=== PATIENT | female | born 2005 ===

== ENCOUNTER 2023-05-25 18:06 | Emergency (ER) | payer OTHER, SELFPAY ==
[2023-05-25 18:14] VITALS: BP 119/66; PULSE 92; RESP 16; TEMP 36.6; O2SAT 100; BMI 34.4
--- NOTE | 2023-05-25 18:17 | ED.GENADULT ---
HPI - General Adult General Chief complaint: Back Pain/Injury Stated complaint: Abdominal pain/cramping traveling to leg Time Seen by Provider: 05/25/23 19:51 Source: patient, family and RN notes reviewed Mode of arrival: ambulatory Limitations: no limitations History of Present Illness HPI narrative: 18 year old female presents for RLQ abdominal pain for the past 2-3 months. She states the pain occurs sporadically and is 10/10 in severity. She reports the pain radiates to her right thigh and back and lasts a few seconds before subsiding. She reports the pain does not occur daily and has not occurred in over 1 week before it occurred today. She states she has a bowel movement 1-2 times per day and denies a change in frequency, consistenty, or hematochezia. She denies nausea or vomiting. She reports she is sexually active with one male partner and has an IUD in place for 1 year. She is not concerned for STIs and denies polydipsia, polyuria, or vaginal discharge. She states she has not seen an OBGYN in a while. She states she does not experience menstrual cycle symptoms due to the IUD. Related Data Allergies Allergy/AdvReac Type Severity Reaction Status Date / Time No Known Allergies Allergy Verified 05/25/23 18:14 Review of Systems Constitutional: Constitutional: Denies chills and Denies fever(s) Cardiovascular: Cardiovascular: Denies chest pain and Denies dyspnea Respiratory: Respiratory: Denies dyspnea Gastrointestinal: Gastrointestinal: Reports abdominal pain, Denies melena, Denies hematochezia, Denies change in bowel habits, Denies constipation, Denies diarrhea, Denies nausea and Denies vomiting Genitourinary: Genitourinary: Denies difficulty voiding, Denies dysuria, Denies sexual dysfunction, Denies urinary urgency, Denies vaginal discharge and Denies vaginal odor Integumentary/Breasts: Skin/Breast: Denies rash PMFSH Social History Social History Advance Directives: No Advance Directives Information Provided: No Physical Exam ED Vital Signs: Vital Signs - 24 hr 05/25/23 18:14 Temperature 97.9 F Pulse Rate 92 Respiratory Rate 16 Blood Pressure 119/66 Pulse Oximetry 100 Oxygen Delivery Method Room Air BMI result Body Mass Index 34.4 Const General: healthy appearing, comfortable and no acute distress Orientation/consciousness: patient oriented x3 Limitations: no limitations HENMT Head: Yes normocephalic and Yes atraumatic Eyes Conjunctivae: conjunctivae normal Sclerae: sclerae normal Corneas: corneas normal Resp Effort & Inspection: normal respiratory effort Auscultation: clear to auscultation bilaterally Cardio Rate: regular rate Rhythm: regular rhythm GI Inspection: Yes normal to inspection and No distended Palpation (GI): Soft to palpation, not firm, nontender, no guarding and not rigid General: Yes no CVA tenderness Back/Spine/Pelvis Back: no CVA tenderness Skin General skin exam: no rashes or lesions noted Neuro General: patient oriented x3 Course Course Course Narrative: RME; 18 yold female presents to the ED for right flank/back and right lower quadrant pain for one month. labs ordered Medical Decision Making Medical Decision Making [facility] Narrative: Patient presenting for evaluation of right lower abdominal pain that has been on and off for 1 month. Given that her pain is been present for 1 month this is likely rules out acute appendicitis. Patient's labs are without any significant abnormalities, she has no white count no electrolyte abnormalities. Her urine is clear, no evidence of UTI or blood to suggest obstructive uropathy. I discussed possible ultrasound of the pelvis with the patient to evaluate for an ovarian cyst and she declines at this time. I have a very low suspicion for ovarian torsion so I feel it is appropriate for her to decline it exam at this time. Differential Diagnosis Differential Diagnoses: The differential diagnosis associated with the presentation includes IBS ovarian cyst appendicitis UTI chlamydia/ghonorrhea IUD misplacement Lab Data [facility] Lab Attestation statement: I reviewed the patient's lab results. No leukocytosis, no significant anemia. Patient's platelet count is just above normal at 410 K. No electrolyte abnormalities. UA with no evidence of blood or infection 05/25/23 18:29 05/25/23 18:29 Labs: Lab Results 05/25/23 Range/Units 18:29 WBC 10.4 (4.8-10.8) X10*3/uL RBC 4.44 (4.20-5.50) X10*6/uL Hgb 12.6 (12.0-16.0) g/dl Hct 38.7 (37.0-47.0) % MCV 87.2 (80.0-98.0) fL MCH 28.4 (27.0-33.0) pg MCHC 32.6 (31.0-35.0) g/dl RDW 11.7 (11.0-16.0) % Plt Count 410 H (160-400) X10*3/uL MPV 9.5 (9.4-12.3) fL Immature Gran % (Auto) 0.3 (0.0-0.4) % Neut % (Auto) 60.7 (45-73) % Lymph % (Auto) 32.3 (20-40) % [place] % (Auto) 5.8 (2-11) % Eos % (Auto) 0.7 (0-4) % Baso % (Auto) 0.2 (0-2) % Lymph # (Auto) 3.4 (1.2-4.9) X10*3/uL [place] # (Auto) 0.6 (0.1-1.2) X10*3/uL Eos # (Auto) 0.1 (0.0-0.4) X10*3/uL Baso # (Auto) 0.0 (0.0-0.2) X10*3/uL Abs Immat Gran (auto) 0.03 (0.00-0.03) X10*3/uL Absolute Neuts (auto) 6.3 (2.0-8.3) x10*3/uL Absolute Nucleated RBC 0.000 (0.0-0.012) X10*3/uL Nucleated RBC % (auto) 0.0 (0.0-0.2) /100WBC PT 12.3 (11.1-13.3) SEC INR 1.0 (0.9-1.1) APTT 31.9 (26.0-36.4) SEC Sodium 141 (135-145) mmol/L Potassium 3.6 (3.3-5.1) mmol/L Chloride 104 (96-108) mmol/L Carbon Dioxide 26 (22-29) mmol/L Anion Gap 15 (12-20) BUN 12 (9-16) mg/dL Creatinine 0.85 (0.5-1.4) mg/dL Estim Creat Clear Calc 107.0 Estimated GFR > 60 Random Glucose 94 (60-115) mg/dL Calcium 9.6 (8.4-10.2) mg/dL Total Bilirubin 0.2 (0.0-1.0) mg/dL AST 20 (5-31) U/L ALT 18 (0-31) U/L Alkaline Phosphatase 92 (39-117) U/L Total Protein 8.0 (6.5-8.0) g/dL Albumin 4.5 (3.5-5.0) g/dL Beta HCG, Quant < 2 mIU/mL Urine Color Yellow Urine Appearance Cloudy Urine pH 8.5 (5.0-9.0) Ur Specific [place] 1.020 (1.005-1.025) Urine Protein Negative (Neg-Trace) mg/dL Urine Glucose (UA) Negative (Negative) mg/dL Urine Ketones Negative (Negative) mg/dL Urine Blood Negative (Negative) Urine Nitrite Negative (Negative) Ur Leukocyte Esterase Negative (Negative) Urine Test NEGATIVE (NEGATIVE) Discharge Plan Discharge Clinical Impression: Abdominal pain, right lower quadrant Patient Disposition: Home, Self-Care Instructions: Abdominal Pain (ED) Additional Instructions: Your workup in the emergency department today was reassuring. This includes your lab work and urine sample. I suspect that your pain is likely related to an ovarian cyst You may benefit from an outpatient pelvic ultrasound to confirm this or rule this out as you decided not to have this exam performed today Follow-up with your primary doctor Return sooner for any new or worsening symptoms Interventions: ED Discharge Assessment Last Done: 05/25/23 20:32 Discharge Date/Time: 05/25/23 20:33
[2023-05-25 18:35] LABS: MANUAL DIFF FLAG NO
[2023-05-25 18:37] LABS: Basophils Percent Auto 0.2 % (0-2); Eosinophils Absolute Auto 0.1 X10*3/uL (0.0-0.4); Eosinophils Percent Auto 0.7 % (0-4); Hematocrit 38.7 % (37.0-47.0); Hemoglobin 12.6 g/dl (12.0-16.0); Imm Gran Abs Auto 0.03 X10*3/uL (0.00-0.03); Imm Gran Pct Auto 0.3 % (0.0-0.4); Lymphocytes Absolute Auto 3.4 X10*3/uL (1.2-4.9); Lymphocytes Percent Auto 32.3 % (20-40); Mean Corpuscular HGB Conc 32.6 g/dl (31.0-35.0); Mean Corpuscular Hemoglobin 28.4 pg (27.0-33.0); Mean Corpuscular Volume 87.2 fL (80.0-98.0); Mean Platelet Volume 9.5 fL (9.4-12.3); Monocytes Absolute Auto 0.6 X10*3/uL (0.1-1.2); Monocytes Percent Auto 5.8 % (2-11); Neutrophils Absolute Auto 6.3 x10*3/uL (2.0-8.3); Neutrophils Percent Auto 60.7 % (45-73); Platelet Count 410 X10*3/uL (160-400); Red Blood Count 4.44 X10*6/uL (4.20-5.50); Red Cell Distribution Width 11.7 % (11.0-16.0); White Blood Count 10.4 X10*3/uL (4.8-10.8)
[2023-05-25 18:47] LABS: Appearance Urine Cloudy; Color Urine Yellow; Glucose Urine UA Negative (Negative); Leukocyte Esterase Urine Negative (Negative); Nitrite Urine Negative (Negative); PH 8.5 (5.0-9.0); Urine Blood Negative (Negative); Urine Ketones Negative (Negative); Urine Protein Negative (Neg-Trace)
[2023-05-25 18:49] LABS: Prothrombin Time 12.3 SEC (11.1-13.3); UPreg QC Valid YES; Urine Pregnancy NEGATIVE (NEGATIVE)
[2023-05-25 18:51] LABS: Partial Thromboplastin Time 31.9 SEC (26.0-36.4)
[2023-05-25 19:07] LABS: Alanine Aminotransferase 18 U/L (0-31); Albumin Level 4.5 g/dL (3.5-5.0); Alkaline Phosphatase 92 U/L (39-117); Anion Gap 15 (12-20); Aspartate Amino Transferase 20 U/L (5-31); Bilirubin Total 0.2 mg/dL (0.0-1.0); Blood Urea Nitrogen 12 mg/dL (9-16); Calcium 9.6 mg/dL (8.4-10.2); Carbon Dioxide 26 mmol/L (22-29); Chloride 104 mmol/L (96-108); Estimated Glomerular Filt Rate > 60; Glucose Random 94 mg/dL (60-115); Potassium 3.6 mmol/L (3.3-5.1); Sodium 141 mmol/L (135-145)
[2023-05-25 19:09] LABS: HCG Quantitative < 2 mIU/mL
--- NOTE | 2023-05-25 19:59 | ED.GENADULT ---
HPI - General Adult General Chief complaint: Back Pain/Injury Stated complaint: Abdominal pain/cramping traveling to leg Time Seen by Provider: 05/25/23 19:51 Source: patient, family, RN notes reviewed and old records reviewed Mode of arrival: ambulatory Limitations: no limitations History of Present Illness HPI narrative: 18 year old female presents for sharp RLQ pain on and off for the past 2-3 months. She states the pain will randomly occur and is 10/10 in severity and will radiate down her thigh and back. She states it occurred today but has not happened in a week. She denies nausea or vomiting. She states she has a bowel movement 1-2 times per day and denies a change in frequency, consistency, or hematochezia. She admits to being sexually active with one male partner for 7 months and is not concerned for STIs. She denies polyuria, dysuria, vaginal discharge. She has an IUD placed for the past year and reports she does not experience menstrual cycle symptoms. She has not seen an OBGYN in some time. Related Data Allergies Allergy/AdvReac Type Severity Reaction Status Date / Time No Known Allergies Allergy Verified 05/25/23 18:14 Review of Systems Constitutional: Constitutional: Denies chills, Denies fever(s), Denies headache(s) and Denies poor appetite ENT: Denies headache(s) Cardiovascular: Cardiovascular: Denies chest pain, Denies syncope and Denies dyspnea Respiratory: Respiratory: Denies dyspnea Gastrointestinal: Gastrointestinal: Denies melena, Denies hematochezia, Denies constipation, Denies diarrhea, Denies nausea, Denies vomiting and Denies hematemesis Genitourinary: Genitourinary: Denies difficulty voiding, Denies dysuria, Denies pelvic pain, Denies urinary urgency and Denies vaginal discharge Integumentary/Breasts: Skin/Breast: Denies rash Neurologic: Denies syncope and Denies headache(s) [facility] Social History Advance Directives: No Advance Directives Information Provided: No Physical Exam ED Vital Signs: Vital Signs - 24 hr 05/25/23 18:14 Temperature 97.9 F Pulse Rate 92 Respiratory Rate 16 Blood Pressure 119/66 Pulse Oximetry 100 Oxygen Delivery Method Room Air BMI result Body Mass Index 34.4 Const General: healthy appearing, comfortable and no acute distress Orientation/consciousness: patient oriented x3 Limitations: no limitations HENAR Head: Yes normocephalic and Yes atraumatic Eyes Conjunctivae: conjunctivae normal Sclerae: sclerae normal Corneas: corneas normal Resp Effort & Inspection: normal respiratory effort GI Inspection: Yes normal to inspection and No distended Palpation (GI): Soft to palpation, not firm, nontender, no guarding and not rigid General: Yes no CVA tenderness Back/Spine/Pelvis Back: no CVA tenderness Skin General skin exam: no rashes or lesions noted Neuro General: patient oriented x3 Medical Decision Making Medical Decision Making [facility] Narrative: Patient is seen and evaluated, on exam she is nontender in the right lower quadrant. Her workup is largely unremarkable, discussed the central pelvic exam with the patient which she defers this time. Given that she is currently asymptomatic, labs are within normal limits, vital signs are stable I do not see any indication for emergent imaging. I have a low suspicion for acute appendicitis this is in the differential. Patient was give return precautions. Her pain is most likely related to ovarian cyst which she has a history of. Differential Diagnosis Differential Diagnoses: The differential diagnosis associated with the presentation includes IBS appendicitis STI UTI Lab Data [facility] Lab Attestation statement: I reviewed the patient's lab results. Patient has no significant leukocytosis or anemia. Platelet count is slightly elevated to 410 K. no significant electrolyte abnormalities. 05/25/23 18:29 05/25/23 18:29 Labs: Lab Results 05/25/23 Range/Units 18:29 WBC 10.4 (4.8-10.8) X10*3/uL RBC 4.44 (4.20-5.50) X10*6/uL Hgb 12.6 (12.0-16.0) g/dl Hct 38.7 (37.0-47.0) % MCV 87.2 (80.0-98.0) fL MCH 28.4 (27.0-33.0) pg MCHC 32.6 (31.0-35.0) g/dl RDW 11.7 (11.0-16.0) % Plt Count 410 H (160-400) X10*3/uL MPV 9.5 (9.4-12.3) fL Immature Gran % (Auto) 0.3 (0.0-0.4) % Neut % (Auto) 60.7 (45-73) % Lymph % (Auto) 32.3 (20-40) % [place] % (Auto) 5.8 (2-11) % Eos % (Auto) 0.7 (0-4) % Baso % (Auto) 0.2 (0-2) % Lymph # (Auto) 3.4 (1.2-4.9) X10*3/uL [place] # (Auto) 0.6 (0.1-1.2) X10*3/uL Eos # (Auto) 0.1 (0.0-0.4) X10*3/uL Baso # (Auto) 0.0 (0.0-0.2) X10*3/uL Abs Immat Gran (auto) 0.03 (0.00-0.03) X10*3/uL Absolute Neuts (auto) 6.3 (2.0-8.3) x10*3/uL Absolute Nucleated RBC 0.000 (0.0-0.012) X10*3/uL Nucleated RBC % (auto) 0.0 (0.0-0.2) /100WBC PT 12.3 (11.1-13.3) SEC INR 1.0 (0.9-1.1) APTT 31.9 (26.0-36.4) SEC Sodium 141 (135-145) mmol/L Potassium 3.6 (3.3-5.1) mmol/L Chloride 104 (96-108) mmol/L Carbon Dioxide 26 (22-29) mmol/L Anion Gap 15 (12-20) BUN 12 (9-16) mg/dL Creatinine 0.85 (0.5-1.4) mg/dL Estim Creat Clear Calc 107.0 Estimated GFR > 60 Random Glucose 94 (60-115) mg/dL Calcium 9.6 (8.4-10.2) mg/dL Total Bilirubin 0.2 (0.0-1.0) mg/dL AST 20 (5-31) U/L ALT 18 (0-31) U/L Alkaline Phosphatase 92 (39-117) U/L Total Protein 8.0 (6.5-8.0) g/dL Albumin 4.5 (3.5-5.0) g/dL Beta HCG, Quant < 2 mIU/mL Urine Color Yellow Urine Appearance Cloudy Urine pH 8.5 (5.0-9.0) Ur Specific [place] 1.020 (1.005-1.025) Urine Protein Negative (Neg-Trace) mg/dL Urine Glucose (UA) Negative (Negative) mg/dL Urine Ketones Negative (Negative) mg/dL Urine Blood Negative (Negative) Urine Nitrite Negative (Negative) Ur Leukocyte Esterase Negative (Negative) Urine Test NEGATIVE (NEGATIVE) Discharge Plan Discharge Clinical Impression: Abdominal pain, right lower quadrant Patient Disposition: Home, Self-Care Instructions: Abdominal Pain (ED) Additional Instructions: Your workup in the emergency department today was reassuring. This includes your lab work and urine sample. I suspect that your pain is likely related to an ovarian cyst You may benefit from an outpatient pelvic ultrasound to confirm this or rule this out as you decided not to have this exam performed today Follow-up with your primary doctor Return sooner for any new or worsening symptoms Interventions: ED Discharge Assessment Last Done: 05/25/23 20:32 Discharge Date/Time: 05/25/23 20:33
== END 2023-05-25 20:33 | disposition home or self-care (01) ==
PROVIDERS: Physician Assistant; Emergency Provider Emergency Medicine
DX: R10.31 Right lower quadrant pain (principal)
CPT/HCPCS: 36415; 80053; 81003; 81025; 84702; 85025; 85610; 85730; 99283; 99284

== ENCOUNTER 2023-10-13 13:28 | Emergency (ER) | payer MEDICAID, SELFPAY ==
[2023-10-13 13:37] VITALS: BP 113/75; PULSE 91; RESP 16; TEMP 36.8; O2SAT 98; BMI 34.6
--- NOTE | 2023-10-13 13:37 | ED.GENADULT ---
HPI - General Adult General Chief complaint: Upper Respiratory Symptoms Stated complaint: needs meds for strep Time Seen by Provider: 10/13/23 14:38 Source: patient Mode of arrival: ambulatory Limitations: no limitations History of Present Illness HPI narrative: Patient is a 18-year-old female who presents emergency department for evaluation of sore throat, nasal congestion. Her boyfriend is been ill with similar symptoms for the past 2 days. Related Data Previous Rx's Medication Instructions Recorded amoxicillin 500 mg capsule 500 mg PO BID #20 caps 10/13/23 Allergies Allergy/AdvReac Type Severity Reaction Status Date / Time No Known Allergies Allergy Verified 05/25/23 18:14 Review of Systems Review of Systems: Yes all other systems are reviewed and are negative [facility] Past Medical History Attestation statement: The following information was validated with the patient. Source: old records reviewed Social History Social History Advance Directives: No Advance Directives Information Provided: No Physical Exam ED Vital Signs: Vital Signs - 24 hr 10/13/23 13:37 Temperature 98.3 F Pulse Rate 91 Respiratory Rate 16 Blood Pressure 113/75 Pulse Oximetry 98 Oxygen Delivery Method Room Air BMI result Body Mass Index 34.6 Appearance: Alert.?Oriented to person, place and time. No acute distress.?Normal affect. Eyes: Pupils equal, round and reactive to light.? ENT: Pharynx erythematous with white exudates, 2+ tonsillar hypertrophy bilaterally. Uvula midline. No trismus. No drooling. ? Neck: Normal inspection.? Neck supple.??No cervical adenopathy CVS: Heart sounds normal. Normal heart rate and rhythm.? Pulses normal.?? Respiratory: No respiratory distress.? Lung sounds clear to auscultation bilaterally?? Abdomen: Soft and non-tender. Normoactive bowel sounds. Skin: Skin warm and dry.? Normal skin color.? Extremities: No lower extremity edema.? No calf ttp? Neuro: Moves all extremities spontaneously. Sensation intact bilaterally. Ambulates with normal steady gait. Course Course Course Narrative: This is an RME: Additional HPI, ROS, PE not included below will be deferred to primary provider. Patient is a 18-year-old female who presents emergency department for evaluation of sore throat, bilateral leg pains, nasal congestion. Her boyfriend is been ill with similar symptoms for the past 2 days. Plan: Viral panel, strep a testing Medical Decision Making Medical Decision Making [facility] Narrative: Patient is a 18-year-old female who presents emergency department for evaluation of sore throat with recent sick contact. Exam is consistent with pharyngitis, strep A negative. Not consistent with peritonsillar retropharyngeal abscess. Viral testing is negative. Speaking clear full sentences. No distress. Nontoxic in appearance, afebrile. Tolerating oral intake. Discharged home with prescription for amoxicillin. Discussed return precautions, outpatient follow-up primary care provider. All questions answered. Differential Diagnosis Differential Diagnoses: The differential diagnosis associated with the presentation includes (See narrative above) Lab Data [facility] Lab Attestation statement: I reviewed the patient's lab results. (See narrative above) Labs: Lab Results 10/13/23 Range/Units 14:09 S. pyogenes GrpA EMILY Positive A (Negative) Prescription Management I considered prescription management with: Pain Medication and Antibiotic Discharge Plan Discharge Clinical Impression: Strep pharyngitis Patient Disposition: Home, Self-Care Instructions: Strep Throat (ED) Additional Instructions: Complete the entire course of antibiotics as prescribed. Do not stop taking them early even if you begin to feel better. You can take ibuprofen 200 mg, 3 tablets (600mg) every 6-8 hours as needed for pain, in addition to Tylenol 500 mg, 2 tablets (1,000mg) every 4-6 hours as needed for pain, but not to exceed 3 doses daily (3,000mg).?. Return back to emergency department any new or worsening symptoms or concerns. Follow-up with your primary care provider. Prescriptions: New amoxicillin 500 mg capsule 500 mg PO BID Qty: 20 0RF Referrals: Physician,None [Primary Care Provider] -
[2023-10-13 14:30] LABS: IDNOW Serial# 08D9AD1C; Strep A Nucleic Acid Positive (Negative)
[2023-10-13 14:44] VITALS: BP 127/80; PULSE 78; RESP 16; TEMP 36.6; O2SAT 98
[2023-10-13 14:49] LABS: Influenza A PCR NEGATIVE (Negative); Influenza B PCR NEGATIVE (Negative); Resp Syncy Virus RNA Qual PCR NEGATIVE (Negative); SARS COV2 PCR INHOUSE NEGATIVE (Negative)
== END 2023-10-13 14:45 | disposition home or self-care (01) ==
PROVIDERS: Nurse Practitioner Family; Emergency Provider Student in an Organized Health Care Education/Training Program
DX: J02.0 Streptococcal pharyngitis (principal); R09.81 Nasal congestion; Z03.818 Encounter for observation for suspected exposure to other biological agents ruled out
CPT/HCPCS: 0241U; 87651; 99282; 99283

== ENCOUNTER 2024-06-02 05:51 | Emergency (ER) | payer MEDICAID, SELFPAY ==
--- NOTE | ~2024-06-02 | CT_ITS ---
EXAMINATION: CT ABDOMEN AND PELVIS WITHOUT CONTRAST CLINICAL INFORMATION: Epigastric/periumbilical abdominal pain. COMPARISON: None available. TECHNIQUE: Multidetector volumetric imaging was performed from the superior aspect of the liver through the pubic symphysis. Sagittal and coronal reformatted images were obtained on the technologist's workstation. This CT examination was performed using dose optimization techniques as appropriate, variously including the following: *Automated exposure control *Adjustment of mA and/or kV according to patient size (this includes techniques or standardized protocols for targeted exams where dose is matched to indication/reason for exam; i.e. extremities or head) *Use of iterative reconstruction technique DLP: 631 mGy-cm FINDINGS: LUNG BASES: The visualized lung bases are unremarkable. LIVER, GALLBLADDER, AND BILIARY TREE: The liver is normal in size, shape, and attenuation. No focal hepatic lesion or biliary ductal dilatation is present. The gallbladder is unremarkable with no evidence of radiopaque gallstones, gallbladder wall thickening, or obvious pericholecystic inflammatory changes. PANCREAS: Unremarkable. SPLEEN: Unremarkable. ADRENAL GLANDS: Unremarkable. KIDNEYS AND URETERS: The kidneys are normal in size, shape, and attenuation. No hydronephrosis, hydroureter, or calculi seen. No perinephric stranding. BLADDER: Partially distended and unremarkable. GASTROINTESTINAL TRACT: No bowel wall thickening or inflammatory change. No small or large bowel obstruction. Unremarkable appendix. PERITONEAL CAVITY: No intra-abdominal free air or free fluid. No intra-abdominal mass or organized fluid collection/abscess formation. ABDOMINAL WALL: No significant hernia is appreciated. LYMPH NODES: No lymphadenopathy. VASCULAR: Unremarkable. PELVIC VISCERA: IUD within the uterus. OSSEOUS STRUCTURES: Unremarkable. CT/CT abdomen pelvis wo IV con IMPRESSION: 1. No bowel wall thickening or inflammatory change. No small or large bowel obstruction. Unremarkable appendix. 2. No intra-abdominal mass, lymphadenopathy, or ascites. 3. No hydronephrosis or nephrolithiasis. Fleischner guidelines were followed. Electronically signed by: Avinash Bailey MD 06/02/2024 09:00 AM [facility]
[2024-06-02 05:53] VITALS: BP 145/77; PULSE 101; RESP 28; TEMP 36.5; O2SAT 96; BMI 34.8
[2024-06-02 06:16] LABS: MANUAL DIFF FLAG NO
[2024-06-02 06:17] LABS: Basophils Percent Auto 0.3 % (0-2); Eosinophils Absolute Auto 0.1 X10*3/uL (0.0-0.4); Eosinophils Percent Auto 1.2 % (0-4); Hemoglobin 12.6 g/dl (12.0-16.0); Imm Gran Abs Auto 0.07 X10*3/uL (0.00-0.03); Imm Gran Pct Auto 0.9 % (0.0-0.4); Lymphocytes Absolute Auto 3.6 X10*3/uL (1.2-4.9); Lymphocytes Percent Auto 46.1 % (20-40); Mean Corpuscular HGB Conc 33.2 g/dl (31.0-35.0); Mean Corpuscular Hemoglobin 29.4 pg (27.0-33.0); Mean Corpuscular Volume 88.8 fL (80.0-98.0); Mean Platelet Volume 9.5 fL (9.4-12.3); Monocytes Absolute Auto 0.5 X10*3/uL (0.1-1.2); Monocytes Percent Auto 6.1 % (2-11); Neutrophils Absolute Auto 3.5 x10*3/uL (2.0-8.3); Neutrophils Percent Auto 45.4 % (45-73); Platelet Count 362 X10*3/uL (160-400); Red Blood Count 4.28 X10*6/uL (4.20-5.50); Red Cell Distribution Width 11.9 % (11.0-16.0); White Blood Count 7.7 X10*3/uL (4.8-10.8)
[2024-06-02 06:35] LABS: Alanine Aminotransferase 17 U/L (0-31); Albumin Level 4.2 g/dL (3.5-5.0); Alkaline Phosphatase 85 U/L (39-117); Amylase 44 U/L (28-100); Anion Gap 13 (12-20); Aspartate Amino Transferase 23 U/L (5-31); Bilirubin Direct < 0.2 mg/dL (0.0-0.5); Bilirubin Total 0.2 mg/dL (0.0-1.0); Blood Urea Nitrogen 16 mg/dL (9-16); Calcium 9.2 mg/dL (8.4-10.2); Carbon Dioxide 25 mmol/L (22-29); Chloride 107 mmol/L (96-108); Creatinine Clr Calc Pharmacy 119.4; Estimated Glomerular Filt Rate > 60; Glucose Random 135 mg/dL (60-115); Lipase 26 U/L (8-78); Potassium 3.7 mmol/L (3.3-5.1); Sodium 141 mmol/L (135-145); Total Protein 7.4 g/dL (6.5-8.0)
--- NOTE | 2024-06-02 06:54 | ED_ITS ---
HPI - Abdominal Pain General Chief Complaint: Abdominal Pain Stated Complaint: stomach pain Time Seen by Provider: 06/02/24 06:39 Source: patient Mode of arrival: ambulatory Limitations: no limitations History of Present Illness ED Provider: DULCE LONDON PA-C HPI narrative: 19-year-old female with no significant pmhx presents to the ED today for evaluation sudden-onset abdominal pain since 0500 this morning. Pain is localized to epigastric/periumbilical region. Denies nausea however forced herself to vomit twice. This did not improve her symptoms. Reports history of similar however felt better after vomiting. Last BM this morning and reports it was her baseline. Denies hematemesis, flank pain, vomiting, diarrhea, constipation, dysuria, hematuria. Denies etoh consumptions. Denies recent travel. Denies consuming any unusual foods. Related Data Previous Rx's ?Medication ?Instructions ?Recorded amoxicillin 500 mg capsule 500 mg PO BID #20 caps 10/13/23 Allergies Allergy/AdvReac Type Severity Reaction Status Date / Time No Known Allergies Allergy Verified 06/02/24 05:54 Review of Systems Review of Systems Constitutional: No fever, chills, fatigue, night sweats, weight changes ENT/Mouth: No ear pain, hearing loss, nasal congestion, sinus pain, rhinorrhea, sore throat Eyes: No eye pain, swelling, redness, vision changes, discharge Cardio: No chest pain, palpitations, TAFOYA, orthopnea, peripheral edema Pulm: No SOB, cough, sputum, wheezing, dyspnea, hemoptysis GI: No nausea, vomiting, hematemesis,diarrhea, constipation, hematochezia, melena, +abdominal pain : No irregular bleeding, dysuria, frequency, urgency, hesitancy, hematuria, flank pain, urinary flow changes, urinary incontinence or retention MSK: No back pain, neck pain, joint pain, myalgias Skin: No lesions, rashes Neuro: No weakness, numbness, paresthesias, LOC, dizziness, headache Psych: No anxiety/panic, depression, SI/HI, AH/VH All other systems reviewed and are negative. [facility] Past Medical History Attestation statement: The following information was validated with the patient. Source: old records reviewed and nursing notes reviewed Social History Social History Smoked in Last 30 Days: No Use of substances other than those prescribed or required for medical reasons: No Advance Directives: No Advance Directives Information Provided: No Do you have a plan to hurt others: No Plan Patient : No Physical Exam ED Vital Signs: Vital Signs - 24 hr 06/02/24 05:53 06/02/24 08:54 Temperature 97.7 F 98.6 F Pulse Rate 101 H 74 Respiratory Rate 28 H 14 Blood Pressure 145/77 H 108/51 L Pulse Oximetry 96 100 Oxygen Delivery Method Room Air Room Air BMI result Body Mass Index 34.8 hypertensive, tachycardic, and tachypneic General: Well appearing, in no acute distress. Skin: Warm, dry, intact. No rashes or lesions. Head: Normocephalic, atraumatic. EENT: Hearing is intact b/l. Conjunctiva clear. Sclera is anicteric. PERRLA. EOM intact. Moist mucous membranes.? Neck: Supple without LAD. FROM. Trachea midline.? Cardiac: Chest wall symmetric. RRR Lungs: Normal respiratory effort without accessory muscle use. CTA bilaterally Abdomen: Soft, nondistended, mildly tender to palpation of periumbilical region, no rebound tenderness or guarding. Normoactive bowel sounds x4. No CVAT bilaterally. Back: No midline spinous or paraspinal tenderness. No step off deformity. Ext: Upper and lower extremities atraumatic, without tenderness, deformity, swelling or erythema. Full ROM throughout. Neuro: AOx3. Normal speech. Ambulating with steady gait. Psych: Appropriate mood and affect. Responds appropriately to questions. Course Course Course Narrative: 193 -- cbc without leukocytosis, no left shift. no anemia. h&h stable. no marley. normal liver function. lipase wnl. urine without infection or blood. urine negative. ct abdomen pending. > morphine ordered for pain control 1027 -- CT abdomen/pelvis without evidence of bowel obstruction. No bowel wall thickening. Normal appendix. Normal gallbladder. On re-evaluation, patient reports complete resolution of symptoms. She states that symptoms resolved after she was able to belch a few times. Concerned it may have been gas pain. States she was feeling well and would like to leave which I feel is reasonable as workup is unremarkable. Patient has remained stable throughout ED visit today. Discussed worrisome signs and symptoms and when to return to the ED. All questions answered at this time. Patient is agreeable with disposition and stable for discharge. Medical Decision Making Medical Decision Making [facility] Narrative: 19-year-old female with no significant pmhx presents to the ED today for evaluation sudden-onset abdominal pain since 0500 this morning. Patient initially hypertensive to 145/77, tachycardic to 101, tachypneic to 28. Afebrile. She is nontoxic-appearing and in no acute distress. Lying comfortably on the exam bed. Skin is warm, dry, intact. Moist mucous membranes. Abdomen is soft, nondistended, mildly tender to palpation of periumbilical region without tenderness or guarding. Normoactive bowel sounds x4. No CVAT bilaterally. Differential diagnoses: constipation, gas pain, appendicitis, diverticulitis, diverticulosis, UTI, IUP, pancreatitis, PUD Abdominal exam without peritoneal signs. No evidence of acute abdomen at this time. Well appearing. Low suspicion for acute hepatobiliary disease (including acute cholecystitis), acute infectious processes (pneumonia, hepatitis, pyelonephritis, PID, TOA), vascular catastrophe, bowel obstruction or viscus perforation, ovarian cyst/ rupture/ torsion, ectopic. Presentation not consistent with other acute, emergent causes of abdominal pain at this time. Plan: labs, UA, CT AP, pain control, serial reassessment Differential Diagnosis Differential Diagnoses: The differential diagnosis associated with the presentation includes As above Admission/Observation not indicated Lab Data [facility] Lab Attestation statement: I reviewed the patient's lab results. as above. 06/02/24 06:13 06/02/24 06:13 Labs: Lab Results 06/02/24 06/02/24 Range/Units 06:13 06:56 WBC 7.7 (4.8-10.8) X10*3/uL RBC 4.28 (4.20-5.50) X10*6/uL Hgb 12.6 (12.0-16.0) g/dl Hct 38.0 (37.0-47.0) % MCV 88.8 (80.0-98.0) fL MCH 29.4 (27.0-33.0) pg MCHC 33.2 (31.0-35.0) g/dl RDW 11.9 (11.0-16.0) % Plt Count 362 (160-400) X10*3/uL MPV 9.5 (9.4-12.3) fL Immature Gran % (Auto) 0.9 H (0.0-0.4) % Neut % (Auto) 45.4 (45-73) % Lymph % (Auto) 46.1 H (20-40) % [place] % (Auto) 6.1 (2-11) % Eos % (Auto) 1.2 (0-4) % Baso % (Auto) 0.3 (0-2) % Lymph # (Auto) 3.6 (1.2-4.9) X10*3/uL [place] # (Auto) 0.5 (0.1-1.2) X10*3/uL Eos # (Auto) 0.1 (0.0-0.4) X10*3/uL Baso # (Auto) 0.0 (0.0-0.2) X10*3/uL Abs Immat Gran (auto) 0.07 H (0.00-0.03) X10*3/uL Absolute Neuts (auto) 3.5 (2.0-8.3) x10*3/uL Absolute Nucleated RBC 0.000 (0.0-0.012) X10*3/uL Nucleated RBC % (auto) 0.0 (0.0-0.2) /100WBC Sodium 141 (135-145) mmol/L Potassium 3.7 (3.3-5.1) mmol/L Chloride 107 (96-108) mmol/L Carbon Dioxide 25 (22-29) mmol/L Anion Gap 13 (12-20) BUN 16 (9-16) mg/dL Creatinine 0.73 (0.5-1.4) mg/dL Estim Creat Clear Calc 119.4 Estimated GFR > 60 Random Glucose 135 H (60-115) mg/dL Calcium 9.2 (8.4-10.2) mg/dL Total Bilirubin 0.2 (0.0-1.0) mg/dL Direct Bilirubin < 0.2 (0.0-0.5) mg/dL AST 23 (5-31) U/L ALT 17 (0-31) U/L Alkaline Phosphatase 85 (39-117) U/L Total Protein 7.4 (6.5-8.0) g/dL Albumin 4.2 (3.5-5.0) g/dL Amylase 44 (28-100) U/L Lipase 26 (8-78) U/L Urine Color Yellow Urine Appearance Clear Urine pH 6.5 (5.0-9.0) Ur Specific [place] 1.025 (1.005-1.025) Urine Protein Negative (Neg-Trace) mg/dL Urine Glucose (UA) Negative (Negative) mg/dL Urine Ketones Negative (Negative) mg/dL Urine Blood Negative (Negative) Urine Nitrite Negative (Negative) Ur Leukocyte Esterase Negative (Negative) Urine RBC 0-2 (0-2) /HPF Urine WBC 0-5 (0-5) /HPF Ur Squamous Epith Cells 6-10 (0-2) /HPF Urine Bacteria 2+ (None Seen) Hyaline Casts 0-2 (0-2) /LPF Urine Test NEGATIVE (NEGATIVE) Independent Interpretation I performed an independent interpretation of an: CT Scan Interpretation: ct abd/ pelvis without bowel wall thickening or obstruction Radiology Impression Discussion of test interpretation with radiology: I have reviewed the radiologist's reading. Radiologist Impression: EXAMINATION: CT ABDOMEN AND PELVIS WITHOUT CONTRAST CLINICAL INFORMATION: Epigastric/periumbilical abdominal pain. COMPARISON: None available. TECHNIQUE: Multidetector volumetric imaging was performed from the superior aspect of the liver through the pubic symphysis. Sagittal and coronal reformatted images were obtained on the technologist's workstation. This CT examination was performed using dose optimization techniques as appropriate, variously including the following: *Automated exposure control *Adjustment of mA and/or kV according to patient size (this includes techniques or standardized protocols for targeted exams where dose is matched to indication/reason for exam; i.e. extremities or head) *Use of iterative reconstruction technique DLP: 631 mGy-cm FINDINGS: LUNG BASES: The visualized lung bases are unremarkable. LIVER, GALLBLADDER, AND BILIARY TREE: The liver is normal in size, shape, and attenuation. No focal hepatic lesion or biliary ductal dilatation is present. The gallbladder is unremarkable with no evidence of radiopaque gallstones, gallbladder wall thickening, or obvious pericholecystic inflammatory changes. PANCREAS: Unremarkable. SPLEEN: Unremarkable. ADRENAL GLANDS: Unremarkable. KIDNEYS AND URETERS: The kidneys are normal in size, shape, and attenuation. No hydronephrosis, hydroureter, or calculi seen. No perinephric stranding. BLADDER: Partially distended and unremarkable. GASTROINTESTINAL TRACT: No bowel wall thickening or inflammatory change. No small or large bowel obstruction. Unremarkable appendix. PERITONEAL CAVITY: No intra-abdominal free air or free fluid. No intra-abdominal mass or organized fluid collection/abscess formation. ABDOMINAL WALL: No significant hernia is appreciated. LYMPH NODES: No lymphadenopathy. VASCULAR: Unremarkable. PELVIC VISCERA: IUD within the uterus. OSSEOUS STRUCTURES: Unremarkable. CT/CT abdomen pelvis wo IV con IMPRESSION: 1. No bowel wall thickening or inflammatory change. No small or large bowel obstruction. Unremarkable appendix. 2. No intra-abdominal mass, lymphadenopathy, or ascites. 3. No hydronephrosis or nephrolithiasis. Fleischner guidelines were followed. Electronically signed by: Avinash Bailey MD 06/02/2024 09:00 AM [facility] Workstation: [id number] Independent Historian Clinical information obtained from an independent historian. History obtained from or confirmed by: Parent (dad) External Record Review External record reviewed: Inpatient record Prescription Management I considered prescription management with: Pain Medication (tylenol/ motrin) Social Determinants Patient?s care significantly limited by Social Determinants of Health including: Other Social Determinant of Health Medications Administered Discontinued Medications Generic Name Dose Route Start Last Admin Trade Name Jarrodq PRN Reason Stop Dose Admin Al Hydroxide/Mg Hydroxide 30 ml 06/02/24 09:21 06/02/24 09:30 Magnesium Hydrox/Alum Hydrox 30 Ml Oral.Susp PO 06/02/24 09:22 30 ml ONCE ONE Administration Belladonna Alkaloids/Phenobarbital 10 ml 06/02/24 09:21 06/02/24 09:29 Phenobarb/Hyoscy/Atropine/Scop 10 Ml Elixir PO 06/02/24 09:22 10 ml ONCE ONE Administration Morphine Sulfate 2 mg 06/02/24 07:00 06/02/24 07:07 Morphine Sulfate 2 Mg/Ml Cartridge IVPUSH 06/02/24 07:01 2 mg ONCE ONE Administration Protocol Ondansetron HCl 4 mg 06/02/24 09:21 06/02/24 09:31 Ondansetron Odt 4 Mg Tab.Rapdis TRANSLINGU 06/02/24 09:22 4 mg ONCE ONE Administration Critical Care Time Critical Care Time Critical Care Time: No Discharge Plan Discharge Clinical Impression: Abdominal pain Patient Disposition: Home, Self-Care Instructions: Abdominal Pain (ED) Additional Instructions: Your blood work today is reassuring. Your urine is negative for infection and . The CT scan of your abdomen is normal. There is no evidence of obstruction or infection. You may take tylenol or motrin at home. Please follow up with PCP this week. Return with new or worsening symptoms. In the case of an emergency call 911. Prescriptions: No Action amoxicillin 500 mg capsule 500 mg PO BID Qty: 20 0RF Referrals: [facility] [Provider Group] [facility] [Provider Group] [facility] [Provider Group] Print Language: Malay
[2024-06-02] MEDS: Morphine Sulfate 2 MG/ML CARTRIDGE IVPUSH (07:07)
[2024-06-02 07:15] LABS: UPreg QC Valid YES; Urine Pregnancy NEGATIVE (NEGATIVE)
[2024-06-02 07:23] LABS: Appearance Urine Clear; Color Urine Yellow; Glucose Urine UA Negative (Negative); Leukocyte Esterase Urine Negative (Negative); Nitrite Urine Negative (Negative); PH 6.5 (5.0-9.0); Specific Gravity - Urine 1.025 (1.005-1.025); Urine Blood Negative (Negative); Urine Ketones Negative (Negative); Urine Protein Negative (Neg-Trace)
[2024-06-02 07:28] LABS: Bacteria Urine 2+ (None Seen); Hyaline Casts Urine 0-2 /LPF (0-2); RBC Urine 0-2 /HPF (0-2); WBC Urine 0-5 /HPF (0-5)
[2024-06-02 08:54] VITALS: BP 108/51; PULSE 74; RESP 14; TEMP 37; O2SAT 100
[2024-06-02] MEDS: PHENobarb/Hyoscy/Atropine/Scop 10 ML ELIXIR PO (09:29)
[2024-06-02] MEDS: Magnesium Hydrox/Alum Hydrox 30 ML ORAL.SUSP PO (09:30)
[2024-06-02] MEDS: Ondansetron ODT 4 MG TAB.RAPDIS TRANSLINGU (09:31)
[2024-06-02 10:45] VITALS: BP 118/77; PULSE 79; RESP 16; TEMP 36.8; O2SAT 100
== END 2024-06-02 10:51 | disposition home or self-care (01) ==
PROVIDERS: Emergency Provider Emergency Medicine
DX: R10.2 Pelvic and perineal pain (principal); R10.13 Epigastric pain; Z79.899 Other long term (current) drug therapy
CPT/HCPCS: 36415; 74176; 80053; 81001; 81025; 82150; 82248; 83690; 85025; 96374; 99284; J2270

== ENCOUNTER 2024-06-19 23:06 | Emergency (ER) | payer SELFPAY ==
[2024-06-19 23:39] VITALS: BP 124/53; PULSE 72; RESP 18; TEMP 36.9; BMI 35.9
[2024-06-20 02:49] VITALS: BP 105/55; PULSE 79; RESP 16; TEMP 36.9; O2SAT 99
--- NOTE | 2024-06-20 03:42 | ED_ITS ---
HPI - General Adult General Chief complaint: General Medical Stated complaint: ?[place] eye in both eyes Time Seen by Provider: 06/20/24 03:32 Source: patient Mode of arrival: ambulatory Limitations: no limitations History of Present Illness ED Provider: HPI narrative: Patient with cold symptoms for last 2 3 days today noticed both eyes are red removed her contact lenses and still has a irritation in both eyes now also patient complaining of running nose and sore throat Related Data Previous Rx's ?Medication ?Instructions ?Recorded amoxicillin 500 mg capsule 500 mg PO BID #20 caps 10/13/23 ciprofloxacin HCl 0.3 % eye drops 1 drp ophthalmic (eye) Q4H 5 days 06/20/24 #5 mL Allergies Allergy/AdvReac Type Severity Reaction Status Date / Time No Known Allergies Allergy Verified 06/19/24 23:41 [facility] Social History Social History Advance Directives: No Advance Directives Information Provided: Yes Do you have a plan to hurt others: No Plan Physical Exam ED Vital Signs: Vital Signs - 24 hr 06/19/24 23:39 06/20/24 02:49 06/20/24 04:08 Temperature 98.4 F 98.4 F 98.4 F Pulse Rate 72 79 79 Respiratory Rate 18 16 16 Blood Pressure 124/53 L 105/55 L 105/55 L Pulse Oximetry 99 99 Oxygen Delivery Method Room Air Room Air Room Air BMI result Body Mass Index 35.9 Appearance: Alert. Oriented X3. No acute distress. ENT: Pharynx slight erythematous Oral Mucosa moist eyes: Conjunctiva erythema bilateral with clear discharge anterior chamber and cornea normal Neck: Normal inspection. Neck supple. CVS: Normal heart rate and rhythm. Pulses normal. Respiratory: No respiratory distress. Equal air entry bilateral, no wheezing/rales/rhonchi Skin: Skin warm and dry. Normal skin color. Normal skin turgor. Extremities: No lower extremity edema. Neuro: Oriented X 3. Medications Administered Discontinued Medications Generic Name Dose Route Start Last Admin Trade Name Freq PRN Reason Stop Dose Admin Tobramycin Sulfate 2 drop 06/20/24 03:35 06/20/24 03:57 Tobramycin Sulfate 0.3% Lara Op 5 Ml Btl EYE-BOTH 06/20/24 03:36 2 drop ONCE ONE Administration Medical Decision Making Lab Data Labs: Lab Results 06/20/24 Range/Units 03:56 S. pyogenes GrpA EMILY Negative (Negative) Discharge Plan Discharge Clinical Impression: Acute bacterial conjunctivitis Patient Disposition: Home, Self-Care Instructions: Conjunctivitis (ED) Additional Instructions: Do not use contact lenses due to get better Eyedrops as prescribed Tylenol/Motrin for pain Prescriptions: New ciprofloxacin HCl 0.3 % drops 1 drp ophthalmic (eye) Q4H 5 Days Qty: 5 0RF Rx Instructions: administer while awake No Action amoxicillin 500 mg capsule 500 mg PO BID Qty: 20 0RF Stand Alone Forms: Work/School Release Interventions: ED Discharge Assessment Last Done: 06/20/24 04:08 Print Language: Turkish
[2024-06-20] MEDS: Tobramycin Sulfate 0.3% Sol Op 5 ML BTL 2 DROP EYE-BOTH (03:57)
--- NOTE | 2024-06-20 04:00 | MHC.EDTECH ---
Patient strep and rsv/covid swab collected and sent to lab .
[2024-06-20 04:08] VITALS: BP 105/55; PULSE 79; RESP 16; TEMP 36.9; O2SAT 99
[2024-06-20 04:10] LABS: IDNOW Serial# 6674DD1D; Strep A Nucleic Acid Negative (Negative)
[2024-06-20 04:37] LABS: Influenza A PCR NEGATIVE (Negative); Influenza B PCR NEGATIVE (Negative); Resp Syncy Virus RNA Qual PCR NEGATIVE (Negative); SARS COV2 PCR INHOUSE NEGATIVE (Negative)
== END 2024-06-20 04:10 | disposition home or self-care (01) ==
PROVIDERS: Emergency Provider Internal Medicine
DX: H10.33 Unspecified acute conjunctivitis, bilateral (principal); J02.9 Acute pharyngitis, unspecified; Z03.818 Encounter for observation for suspected exposure to other biological agents ruled out
CPT/HCPCS: 0241U; 87651; 99283